=== PATIENT | male | born 1990 | race African-American/Black ===

== ENCOUNTER 2017-10-30 18:58 | Emergency (ER) | payer MEDICAID ==
[~2017-10-30] VITALS: Ht 177.8 cm; Wt 77.0 kg
[2017-10-30 22:30] VITALS: BP 120/79
== END 2017-10-30 22:47 | disposition home or self-care (01) ==
LOC: ER 20:26
DX: S16.1XXA Strain of muscle, fascia and tendon at neck level, initial encounter (principal); S43.402A Unspecified sprain of left shoulder joint, initial encounter; F17.200 Nicotine dependence, unspecified, uncomplicated; V43.52XA Car driver injured in collision with other type car in traffic accident, initial encounter; Y93.89 Activity, other specified; Y99.8 Other external cause status; Y92.89 Other specified places as the place of occurrence of the external cause
CPT/HCPCS: 99282

== ENCOUNTER 2019-08-18 19:40 | Emergency (ER) | payer MEDICAID ==
[~2019-08-18] VITALS: Ht 177.8 cm; Wt 78.0 kg
[2019-08-18] MEDS ORDERED: IBUPROFEN 800MG TABLET PO ONE (21:45)
[2019-08-18] MEDS ORDERED: HYDROCODONE/ACETAMINOPHEN 5/325MG TABLET PO ONE (21:45)
[2019-08-18 23:48] VITALS: BP 132/83
== END 2019-08-18 23:50 | disposition home or self-care (01) ==
LOC: ER 19:40
DX: M25.512 Pain in left shoulder (principal); M54.2 Cervicalgia; V43.52XA Car driver injured in collision with other type car in traffic accident, initial encounter; Y93.89 Activity, other specified; Y92.410 Unspecified street and highway as the place of occurrence of the external cause
CPT/HCPCS: 99283

== ENCOUNTER 2019-10-31 14:53 | Emergency (ER) | payer MEDICARE, MEDICAID ==
[~2019-10-31] VITALS: Ht 170.2 cm; Wt 82.0 kg
[2019-10-31] MEDS ORDERED: IBUPROFEN 600MG TABLET PO STA (16:14)
[2019-10-31 16:51] VITALS: BP 135/75
== END 2019-10-31 16:52 | disposition home or self-care (01) ==
LOC: ER 14:53
DX: M25.511 Pain in right shoulder (principal)
CPT/HCPCS: 99282; A4565

== ENCOUNTER 2022-04-20 14:56 | Emergency (ER) | payer MEDICAID, MEDICARE ==
[~2022-04-20] VITALS: Ht 175.3 cm; Wt 91.0 kg
[2022-04-20 14:58] VITALS: BP 148/84
[2022-04-20] MEDS ORDERED: DIPHENHYDRAMINE 25MG CAPSULE PO ONE (17:15)
[2022-04-20] MEDS ORDERED: PERM60CR4 TP (17:18)
[2022-04-20] MEDS ORDERED: DIPH25TA62 MT (17:18)
== END 2022-04-20 17:58 | disposition home or self-care (01) ==
LOC: ER 14:56
DX: B86 Scabies (principal); R03.0 Elevated blood-pressure reading, without diagnosis of hypertension
CPT/HCPCS: 99282; Q0163

== ENCOUNTER 2022-09-09 14:48 | Emergency (ER) | payer MEDICAID ==
[~2022-09-09] VITALS: Ht 175.3 cm; Wt 91.0 kg
[~2022-09-09 14:48] MED LIST: DIPH25TA62 MT; PERM60CR4 TP
[2022-09-09 15:02] VITALS: BP 149/96
[2022-09-09] MEDS ORDERED: IBUPROFEN 400MG TABLET PO ONE (16:15)
[2022-09-09] MEDS ORDERED: IBUP-2028 MT (17:31)
== END 2022-09-09 17:42 | disposition home or self-care (01) ==
LOC: ER 14:48
DX: R07.81 Pleurodynia (principal); G89.11 Acute pain due to trauma; V47.5XXA Car driver injured in collision with fixed or stationary object in traffic accident, initial encounter; Y93.I9 Activity, other involving external motion; Y92.488 Other paved roadways as the place of occurrence of the external cause
CPT/HCPCS: 71101; 99283

== ENCOUNTER 2025-06-16 18:42 | Inpatient (IN) | payer MEDICAID ==
[~2025-06-16] VITALS: Ht 177.8 cm; Wt 88.0 kg
[~2025-06-16 18:42] MED LIST changes: +IBUP-2028 MT; +PERM60CR20 TP; -PERM60CR4 TP
[2025-06-16 18:56] VITALS: O2SAT 98
[2025-06-16] MEDS: IBUPROFEN 600MG TABLET PO ONE (19:45)
[2025-06-16 20:36] LABS: BASOPHILS % 0.4 % (0.0-2.0); EOSINOPHILS % 4.2 % (0.0-5.0); HEMATOCRIT. 41.6 % (42.0-52.0); HEMOGLOBIN. 13.6 g/dL (14.0-18.0); LYMPHOCYTES % 43.6 % (20.0-50.0); MEAN PLATELET VOLUME 7.6 fl (7.4-10.4); MONOCYTES % 7.6 % (2.0-8.0); NEUTROPHILS % 44.2 % (40.0-76.0); PLATELET 259 x1000/uL (130-400); RED BLOOD CELL COUNT 5.11 mill/uL (4.7-6.1); RED CELL DISTRIBUTION WIDTH 14.3 % (11.6-14.6)
[2025-06-16] MEDS: LIDOCAINE 5% PATCH TOP STA (20:47)
[2025-06-16 20:50] LABS: CREATININE 1.0 mg/dL (0.6-1.3)
[2025-06-16 20:51] LABS: UREA NITROGEN BLOOD 10 mg/dL (9-23)
[2025-06-16 20:52] LABS: ASPARTATE AMINOTRANSFERASE 15 IU/L (<34)
[2025-06-16 20:53] LABS: BILIRUBIN DIRECT 0.1 mg/dL (<=3.0); BILIRUBIN TOTAL 0.5 mg/dL (0.1-1.0); PROTEIN TOTAL 7.1 g/dL (6.0-8.3)
[2025-06-16 21:29] LABS: CLARITY URINE TURBID (CLEAR); COLOR URINE YELLOW (YELLOW); GLUCOSE URINE NEGATIVE (NEGATIVE); KETONES URINE TRACE (NEGATIVE); LEUKOCYTE ESTERASE URINE NEGATIVE (NEGATIVE); NITRITE URINE NEGATIVE (NEGATIVE); OCCULT BLOOD URINE NEGATIVE (NEGATIVE); PH URINE 7.0 (4.5-8.0); PROTEIN URINE NEGATIVE (NEGATIVE); SPECIFIC GRAVITY URINE 1.027 (1.005-1.030); UROBILINOGEN URINE 1.0 E.U./dL (0.2-1.0)
[2025-06-16 21:33] LABS: RBC URINE NONE SEEN /hpf (0-2); SQUAMOUS EPITHELIAL CELL URINE NONE SEEN /lpf (RARE/1+); WBC URINE 0-2 /hpf (0-2)
[2025-06-16 21:34] LABS: BACTERIA URINE 3+
[2025-06-17 00:30] VITALS: BP 140/71; PULSE 89; RESP 18; TEMP 36.5292
[2025-06-17] MEDS ORDERED: IPRATROPIUM/ALBUTEROL 0.5-3(2.5)MG/3ML NEB HHN PRN (05:00)
[2025-06-17] MEDS ORDERED: ACETAMINOPHEN 325MG TABLET PO PRN ×2 (05:00)
[2025-06-17] MEDS ORDERED: GUAIFENESIN 200MG/10ML SUGAR FREE UDC PO PRN (05:00)
[2025-06-17] MEDS ORDERED: MAGNESIUM/ALUMINUM HYDROXIDE/SIMETHICONE 30ML UDC PO PRN (05:00)
[2025-06-17] MEDS ORDERED: ONDANSETRON HCL 4MG/2ML INJ IV PRN (05:00)
[2025-06-17] MEDS ORDERED: DOCUSATE SODIUM 100MG CAPSULE PO PRN (05:00)
[2025-06-17] MEDS ORDERED: KETOROLAC 15MG/ML VIAL IV PRN (05:30)
[2025-06-17 08:00] VITALS: BP 105/79; PULSE 64; RESP 16; RESP 17; TEMP 36.6; O2SAT 99
[2025-06-17] MEDS: AMLODIPINE 5MG TABLET PO SCH (09:00)
[2025-06-17 09:01] VITALS: BP 105/79; PULSE 64; RESP 20; TEMP 97.9
[2025-06-17] MEDS ORDERED: IBUP-1455 MT (10:36)
[2025-06-17 12:00] VITALS: BP 118/84; PULSE 55; RESP 20; TEMP 36.7; O2SAT 100
[2025-06-17 16:40] LABS: BASOPHILS % 0.8 % (0.0-2.0); EOSINOPHILS % 3.0 % (0.0-5.0); HEMATOCRIT. 42.9 % (42.0-52.0); HEMOGLOBIN. 14.1 g/dL (14.0-18.0); LYMPHOCYTES % 38.5 % (20.0-50.0); MEAN PLATELET VOLUME 8.0 fl (7.4-10.4); MONOCYTES % 7.0 % (2.0-8.0); NEUTROPHILS % 50.7 % (40.0-76.0); PLATELET 261 x1000/uL (130-400); RED BLOOD CELL COUNT 5.28 mill/uL (4.7-6.1); RED CELL DISTRIBUTION WIDTH 14.5 % (11.6-14.6)
[2025-06-17 16:53] LABS: CREATININE 1.0 mg/dL (0.6-1.3); TRIGLYCERIDE 131 mg/dL (0-150); UREA NITROGEN BLOOD 9 mg/dL (9-23)
[2025-06-17 16:54] LABS: LDL CHOLESTEROL 146 mg/dL (5-100)
== END 2025-06-17 16:11 | disposition home or self-care (01) | DRG 347 ==
LOC: ER 18:42 → 7EST 23:20 → EDBEDREQTM 23:29 → EDBEDREQ 23:29 → ENRESERV 06-17 00:04
PROVIDERS: ADMIT Internal Medicine; ATTEND Internal Medicine
DX: M47.812 Spondylosis without myelopathy or radiculopathy, cervical region (principal); F12.90 Cannabis use, unspecified, uncomplicated; M47.814 Spondylosis without myelopathy or radiculopathy, thoracic region; M47.816 Spondylosis without myelopathy or radiculopathy, lumbar region; F17.200 Nicotine dependence, unspecified, uncomplicated; Z79.899 Other long term (current) drug therapy
CPT/HCPCS: 36415; 70551; 72128; 72131; 72141; 72146; 72148; 80048; 80061; 80076; 81003; 83036; 84443; 85025; 93005; 99285